=== PATIENT | female | born 1970 | race African-American/Black ===

== ENCOUNTER → 2023-07-09 08:32 | Outpatient (REF) | payer OTHER, SELFPAY | LOC: RAD 08:32 | PROVIDERS: ATTENDING PHYSICIAN Physician Assistant | DX: M25.562 Pain in left knee (principal) | CPT/HCPCS: 73564 ==

== ENCOUNTER 2023-09-05 15:40 | Emergency (ER) | payer SELFPAY ==
[2023-09-05 15:44] VITALS: BP 120/78
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
== END 2023-09-05 17:51 | disposition home or self-care (01) ==
LOC: EMR 15:40
PROVIDERS: EMERGENCY PHYSICIAN Emergency Medicine; FAMILY PHYSICIAN Physician Assistant
DX: S16.1XXA Strain of muscle, fascia and tendon at neck level, initial encounter (principal); S86.111A Strain of other muscle(s) and tendon(s) of posterior muscle group at lower leg level, right leg, initial encounter; V89.2XXA Person injured in unspecified motor-vehicle accident, traffic, initial encounter; I10 Essential (primary) hypertension
CPT/HCPCS: 99282

== ENCOUNTER 2023-11-02 18:02 | Outpatient (RCR) | payer OTHER, SELFPAY | END 2023-11-02 23:59 | disposition home or self-care (01) | LOC: RPT 18:02 | PROVIDERS: ATTENDING PHYSICIAN Physician Assistant | DX: R42 Dizziness and giddiness (principal); M54.2 Cervicalgia; G44.309 Post-traumatic headache, unspecified, not intractable; Z73.6 Limitation of activities due to disability | CPT/HCPCS: 97010; 97110; 97140; 97162 ==

== ENCOUNTER 2023-11-28 18:19 | Outpatient (RCR) | payer OTHER, SELFPAY | END 2023-11-28 23:59 | disposition home or self-care (01) | LOC: RPT 18:19 | PROVIDERS: ATTENDING PHYSICIAN Physician Assistant | DX: R42 Dizziness and giddiness (principal); G44.309 Post-traumatic headache, unspecified, not intractable; M54.2 Cervicalgia; Z73.6 Limitation of activities due to disability | CPT/HCPCS: 97010; 97110; 97140 ==

== ENCOUNTER 2024-01-02 18:15 | Outpatient (RCR) | payer OTHER, SELFPAY | END 2024-01-02 23:59 | disposition home or self-care (01) | LOC: RPT 18:15 | PROVIDERS: ATTENDING PHYSICIAN Physician Assistant | DX: R42 Dizziness and giddiness (principal); M54.2 Cervicalgia; G44.309 Post-traumatic headache, unspecified, not intractable; Z73.6 Limitation of activities due to disability | CPT/HCPCS: 97010; 97110; 97140 ==

== ENCOUNTER → 2024-01-12 18:20 | Outpatient (REF) | payer OTHER, SELFPAY | LOC: WDC 18:20 | PROVIDERS: ATTENDING PHYSICIAN Physician Assistant | DX: Z12.31 Encounter for screening mammogram for malignant neoplasm of breast (principal) | CPT/HCPCS: 77063; 77067 ==

== ENCOUNTER 2024-02-06 17:51 | Outpatient (RCR) | payer OTHER, SELFPAY | END 2024-02-06 23:59 | disposition home or self-care (01) | LOC: RPT 17:51 | PROVIDERS: ATTENDING PHYSICIAN Physician Assistant | DX: R42 Dizziness and giddiness (principal); M54.2 Cervicalgia; G44.309 Post-traumatic headache, unspecified, not intractable; Z73.6 Limitation of activities due to disability | CPT/HCPCS: 97010; 97140 ==

== ENCOUNTER → 2024-02-25 11:17 | Outpatient (REF) | payer OTHER, SELFPAY | LOC: RAD 11:17 | PROVIDERS: ATTENDING PHYSICIAN Physician Assistant | DX: R07.89 Other chest pain (principal); M79.602 Pain in left arm | CPT/HCPCS: 72052 ==

== ENCOUNTER 2024-03-29 06:27 | Day surgery (SDC) | payer OTHER, SELFPAY ==
[2024-03-29 07:33] LABS: Glucose - Point of Care 149 mg/dl (70-99)
== END 2024-03-29 10:04 | disposition home or self-care (01) ==
LOC: GI 06:27
PROVIDERS: ATTENDING PHYSICIAN Internal Medicine Gastroenterology
DX: K29.70 Gastritis, unspecified, without bleeding (principal); K31.7 Polyp of stomach and duodenum; K31.A0 Gastric intestinal metaplasia, unspecified; Z80.0 Family history of malignant neoplasm of digestive organs
CPT/HCPCS: 43239; 88305; 82962; 88342

== ENCOUNTER → 2024-05-28 07:38 | Outpatient (REF) | payer OTHER, SELFPAY | LOC: RCS 07:38 | PROVIDERS: ATTENDING PHYSICIAN Physician Assistant | DX: R07.89 Other chest pain (principal); M79.602 Pain in left arm | CPT/HCPCS: 93017 ==

== ENCOUNTER → 2024-08-07 07:11 | Outpatient (REF) | payer OTHER, SELFPAY | LOC: MRI 3T 07:11 | PROVIDERS: ATTENDING PHYSICIAN Anesthesiology Pain Medicine; FAMILY PHYSICIAN Physician Assistant | DX: M54.12 Radiculopathy, cervical region (principal); M54.2 Cervicalgia; M54.16 Radiculopathy, lumbar region | CPT/HCPCS: 72141; 72148 ==

== ENCOUNTER → 2025-01-14 15:30 | Outpatient (REF) | payer OTHER, SELFPAY | LOC: WDC 15:30 | PROVIDERS: FAMILY PHYSICIAN Physician Assistant | DX: Z12.31 Encounter for screening mammogram for malignant neoplasm of breast (principal) | CPT/HCPCS: 77063; 77067 ==

== ENCOUNTER → 2025-04-25 18:34 | Outpatient (REF) | payer OTHER, SELFPAY | LOC: PAVMRI 18:34 | PROVIDERS: ATTENDING PHYSICIAN Physician Assistant | DX: E11.9 Type 2 diabetes mellitus without complications (principal); I10 Essential (primary) hypertension; M54.2 Cervicalgia; E78.2 Mixed hyperlipidemia; Z82.49 Family history of ischemic heart disease and other diseases of the circulatory system; R51.9 Headache, unspecified; H53.9 Unspecified visual disturbance | CPT/HCPCS: 70544 ==